=== PATIENT | male | born 1995 | race Caucasian/White ===

== ENCOUNTER 2018-03-15 17:21 | Emergency (ER) | payer MEDICAID | END 2018-03-15 19:40 | disposition home or self-care (01) | LOC: D.ER 17:21 | DX: J06.9 Acute upper respiratory infection, unspecified (principal) ==

== ENCOUNTER 2019-04-03 17:34 | Emergency (ER) | payer MEDICAID ==
[~2019-04-03] VITALS: Ht 177.8 cm; Wt 48.2 kg
[2019-04-03 17:47] VITALS: Ht 177.8 cm; Wt 48.2 kg
[2019-04-03] MEDS ORDERED: ZOLOFT50 MG PO (17:51)
[2019-04-03] MEDS ORDERED: AMITRIPTYLINE (17:51)
[2019-04-03] MEDS ORDERED: XANAX2 MG (17:52)
[2019-04-03] MEDS ORDERED: [UNRECOGNIZED DRUG - OTHER] (17:53)
[2019-04-03 18:17] LABS: APPEARANCE CLEAR (CLEAR); BILIRUBIN NEGATIVE (NEGATIVE); COLOR YELLOW (YELLOW); GLUCOSE NEGATIVE (NEGATIVE); KETONE NEGATIVE (NEGATIVE); NITRITE NEGATIVE (NEGATIVE); PROTEIN NEGATIVE (NEGATIVE); UROBILINOGEN NORMAL (NORMAL)
[2019-04-03 18:22] LABS: BASOPHILS 0.7 % (0-2); EOSINOPHILS 1.9 % (0-7); HEMATOCRIT 41.4 % (42.0-54.0); HEMOGLOBIN 14.4 g/dL (13.5-17.5); IMMATURE GRANULOCYTES 0.1 % (0-5); LYMPHOCYTES 31.1 % (15-50); MCHC 34.8 g/dL (31.0-37.0); MEAN PLATELET VOLUME 9.5 fL (7.4-10.4); MONOCYTES 9.9 % (2-11); NEUTROPHILS 56.3 % (40-80); PLATELET COUNT 300 10x3/uL (130-400); RBC 4.65 10x6/uL (4.20-6.10); WBC 6.9 10x3/uL (4.8-10.8)
[2019-04-03 18:28] LABS: UDS - AMPHET NEGATIVE QUAL (NEGATIVE); UDS - BARB NEGATIVE QUAL (NEGATIVE); UDS - BENZO NEGATIVE QUAL (NEGATIVE); UDS - COCAINE NEGATIVE QUAL (NEGATIVE); UDS - OPIATE NEGATIVE QUAL (NEGATIVE); UDS - PCP NEGATIVE QUAL (NEGATIVE); UDS - THC NEGATIVE QUAL (NEGATIVE)
[2019-04-03 18:48] LABS: ALBUMIN 4.1 g/dL (3.4-5.0); ALKALINE PHOSPHATASE 70 U/L (46-116); ALT (SGPT) 14 U/L (10-68); CALC OSMOLALITY 282 mosm/kg (275-300); CALCIUM 9.1 mg/dL (8.5-10.1); CARBON DIOXIDE 26.1 mmol/L (21.0-32.0); CHLORIDE - SERUM 103 mmol/L (98-107); GLUCOSE 83 mg/dL (74-106); MAGNESIUM - SERUM 2.1 mg/dL (1.8-2.4); POTASSIUM - SERUM 3.4 mmol/L (3.5-5.1); PROTEIN - SERUM 7.8 g/dL (6.4-8.2); SODIUM 142 mmol/L (136-145); UREA NITROGEN 14 mg/dL (7-18); eGFR NON AFRICAN AMERICAN > 90 mL/min (90-120)
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
[2019-04-04 01:00] VITALS: BP 108/72
== END 2019-04-04 01:00 ==
LOC: D.ER 17:34
PROVIDERS: Family Medicine
DX: R45.851 Suicidal ideations (principal); F32.9 Major depressive disorder, single episode, unspecified

== ENCOUNTER 2021-05-09 16:50 | Emergency (ER) | payer OTHER ==
[~2021-05-09] VITALS: Ht 177.8 cm; Wt 69.1 kg
[~2021-05-09 16:50] MED LIST: AMITRIPTYLINE; AMITRIPTYLINE H50 MG PO; SEROQUEL100 MG PO; SINGULAIR10 MG PO; XANAX2 MG; ZOLOFT100 MG PO; ZOLOFT50 MG PO; [UNRECOGNIZED DRUG - OTHER]
[2021-05-09 17:08] VITALS: Ht 177.8 cm; Wt 69.1 kg
[2021-05-09] MEDS ORDERED: PENICILLIN V P500 MG PO (19:18)
[2021-05-09] MEDS ORDERED: HYDROCODON-ACE1 EA10 PO (19:18)
[2021-05-09 19:24] VITALS: BP 135/80
== END 2021-05-09 19:24 | disposition home or self-care (01) ==
LOC: D.ER 16:50
DX: K02.9 Dental caries, unspecified (principal); K08.89 Other specified disorders of teeth and supporting structures; M54.5 Low back pain